=== PATIENT | female | born 1960 | race African-American/Black ===

== ENCOUNTER 2017-09-22 11:24 | Emergency (ER) | payer OTHER ==
[~2017-09-22] VITALS: Ht 162.6 cm; Wt 60.0 kg
[2017-09-22] MEDS ORDERED: ACETAMINOPHEN 325MG TABLET PO ONE (13:00)
[2017-09-22] MEDS ORDERED: TRAMADOL 50MG TABLET PO ONE (13:00)
[2017-09-22 15:15] VITALS: BP 118/72
== END 2017-09-22 16:30 | disposition home or self-care (01) ==
LOC: ER 11:57
DX: R51 Headache (principal); F31.9 Bipolar disorder, unspecified; F32.9 Major depressive disorder, single episode, unspecified; Z20.6 Contact with and (suspected) exposure to human immunodeficiency virus [HIV]
CPT/HCPCS: 99283; Z7610